=== PATIENT | female | born 1985 | race Asian ===

== ENCOUNTER 2024-08-08 21:11 | Emergency (ER) | payer MEDICAID ==
[~2024-08-08] VITALS: Ht 157.5 cm; Wt 66.4 kg
[2024-08-08 21:13] VITALS: BP 111/78; PULSE 78; RESP 18; TEMP 98.4; O2SAT 98
[2024-08-08] MEDS ORDERED: DOXY100C43 PO (21:41)
[2024-08-08] MEDS: DOXYCYCLINE 100MG CAPSULE PO STA (21:50)
== END 2024-08-08 21:53 | disposition home or self-care (01) ==
LOC: ER 21:12
DX: L03.314 Cellulitis of groin (principal); Z88.2 Allergy status to sulfonamides; Z88.8 Allergy status to other drugs, medicaments and biological substances; Z79.2 Long term (current) use of antibiotics
CPT/HCPCS: 99283